=== PATIENT | male | born 1980 | race Caucasian/White ===

== ENCOUNTER → 2016-06-01 | Emergency (ER) | payer SELFPAY ==
[~2016-06-01] VITALS: Ht 170.2 cm; Wt 90.0 kg
[~2016-06-01] MED LIST: SODIUM CHLORIDE FLUSH 10 ML SYR IV PRN; SODIUM CHLORIDE FLUSH 3 ML SYR IV PRN; no home meds
--- OUTSIDE RECORDS SUMMARY | 2016-06-01 22:25 | XMS REPORT | Continuity of Care Document ---
Author Author [facility] Address Unknown Phone Unavailable Allergies Active Description Code Type Severity Reaction Onset Reported/Identified Relationship to Patient Clinical Status Yes No Allergy Information Available [id number] Drug Allergy Unknown N/A 08/19/2014 Medications Problems Date Dx Coded Attending Type Code Diagnosis Diagnosed By 07/29/2012 Ot 305.00 07/29/2012 Ot 786.50 03/16/2014 LARRY CESPEDES, EMI Boyle Ot 466.0 04/08/2014 LARRY CESPEDES, EMI Boyle Ot V70.0 04/20/2014 LARRY CESPEDES, EMI Boyle Ot 466.0 04/20/2014 LARRY CESPEDES, EMI Boyle Ot 466.0 04/20/2014 LARRY CESPEDES, EMI Boyle Ot V70.0 05/01/2014 LARRY CESPEDES, EMI Boyle Ot 466.0 08/19/2014 HARRIET WINSLOW DO Ot 873.42 08/19/2014 HARRIET WINSLOW DO Ot E849.0 08/19/2014 HARRIET WINSLOW DO Ot E917.4 Procedures Results Encounters ACCT No. Visit Date/Time Discharge Status Pt. Type Provider Facility Loc./Unit Complaint [id number] 11/10/2014 15:06:00 2014 23:59:59 CLS Outpatient CYNTHIA GOTTLIEB APRN [facility] RAD [id number] 08/19/2014 05:24:00 2014 06:25:00 DIS Emergency WINSLOWHARRIET BLANCO DO [facility] ED [id number] 07/06/2014 14:03:00 2014 23:59:59 CLS Outpatient Esther CESPEDES, Adolfo Barahona [facility] RAD [id number] 03/16/2014 13:00:00 2013 23:59:59 CLS Outpatient LARRY CESPEDES, EMI Boyle [facility] LAB [id number] 02/26/2014 14:59:00 2013 23:59:59 CLS Outpatient LARRY CESPEDES, [facility] [id number] 08/30/2014 06:59:00 Document Registration [id number] 07/29/2012 02:48:00 Document Registration
--- OUTSIDE RECORDS SUMMARY | 2016-06-01 22:29 | XMS REPORT | Continuity of Care Document ---
Author Author [facility] Address Unknown Phone Unavailable Allergies Active Description Code Type Severity Reaction Onset Reported/Identified Relationship to Patient Clinical Status Yes No Allergy Information Available [id number] Drug Allergy Unknown N/A 08/19/2014 Medications Problems [...] Status Pt. Type Provider Facility Loc./Unit Complaint [id number] 11/10/2014 15:06:00 2014 23:59:59 CLS Outpatient CYNTHIA GOTTLIEB APRN [facility] RAD [id number] 08/19/2014 05:24:00 2014 06:25:00 DIS Emergency WINSLOWHARRIET BLANCO DO [facility] ED [id number] 07/06/2014 14:03:00 2014 23:59:59 CLS Outpatient Esther CESPEDES, Adolfo Barahona [facility] RAD [id number] 03/16/2014 13:00:00 2013 23:59:59 CLS Outpatient LARRY CESPEDES, EMI Boyle [facility] LAB [id number] 02/26/2014 14:59:00 2013 23:59:59 CLS Outpatient LARRY CESPEDES, [facility] [id number] 08/30/2014 06:59:00 Document Registration [id number] 07/29/2012 02:48:00 Document Registration
--- NOTE | 2016-06-01 22:50 | NUR ---
PT VOIDED AND OBTAINED A SPECIMEN ON ARRIVAL. POLICE LEFT BECAUSE THEY SAID THAT PT WAS NOT IN THEIR CUSTODY.
--- NOTE | 2016-06-01 22:51 | NUR ---
PT LEFT IN ROOM 2 CURTAIN WIDE OPEN. REPORT GIVEN TO .
--- NOTE | 2016-06-01 23:03 | NUR ---
WALK BY ROOM AND PATIENT WAS GONE. ADMISSION SHIP CARPENTER CAME TO THE BACK AND SAID THAT PT JUST WALKED OUT. NURSE CALLED DISPATCH TO MAKE THEM AWARE. COOK HELPER VEGETABLE NOTIFIED.
[2016-06-01 23:50] VITALS: BP 140/99
--- NOTE | 2016-06-01 23:58 | NUR ---
late entry: Spoke to MD and he stated that he had interviewed patient and ordered labs. So, pt was seen by physician, and therefore eloped.
== END | disposition left against medical advice (07) ==
LOC: ED 22:25
DX: F10.129 Alcohol abuse with intoxication, unspecified (principal); Y90.7 Blood alcohol level of 200-239 mg/100 ml
CPT/HCPCS: 99282